=== PATIENT | female | born 1975 | race Caucasian/White ===

== ENCOUNTER → 2024-01-07 09:56 | Outpatient (REF) | payer BC, SELFPAY ==
[2024-01-07 10:21] LABS: % Basophils 1.2 % (0-2); % Immature Granulocytes 0.3 % (0-0.5); % Lymphocytes 25.3 % (20.5-51.1); % Monocytes 6.5 % (1.7-9.3); % Neutrophils 57.7 % (42.2-75.2); Absolute Basophils 0.1 10^3/uL (0-0.2); Absolute Eosinophils 0.5 10^3/uL (0-0.7); Absolute Lymphocytes 1.5 10^3/uL (1.2-3.4); Absolute Monocytes 0.4 10^3/uL (0.1-0.6); Absolute Neutrophils 3.5 10^3/uL (1.4-6.5); Hematocrit 42.3 % (37.0-47.0); Hemoglobin 14.5 g/dL (12.0-16.0); Mean Corp Hgb Conc. 34.3 g/dL (33.0-37.0); Mean Corpuscular Hgb 30.3 pg (27.0-31.0); Mean Corpuscular Volume 88.3 fL (81.0-99.0); Mean Platelet Volume 11.7 fL (7.4-10.4); Nucleated Red Blood Cells % 0 %; Platelet Count 195 10^3/uL (130-400); Red Blood Cell Count 4.79 10^6/uL (4.20-5.40); Red Cell Dist. Width 12.2 % (11.5-14.5)
[2024-01-07 11:10] LABS: Glycohemoglobin (HgbA1c) 12.9 % (4.0-5.6)
[2024-01-07 11:11] LABS: ALT (SGPT) 17 U/L (0-35); AST (SGOT) 18 U/L (14-36); Albumin 3.9 g/dl (3.5-5.0); Alkaline Phosphatase 85 U/L (38-126); Blood Urea Nitrogen 12 mg/dl (7-17); Calcium 9.6 mg/dl (8.4-10.2); Carbon Dioxide 27 mmol/L (22-30); Chloride 98 mmol/L (98-107); Glucose 324 mg/dl (70-99); HDL Cholesterol 90 mg/dl; LDL Cholesterol, Calculated 39 mg/dl; Potassium 4.3 mmol/L (3.5-5.1); Sodium 133 mmol/L (135-145); Total Bilirubin 1.2 mg/dl (0.2-1.3); Total Cholesterol 156 mg/dl (50-199); Total Protein 6.7 g/dl (6.3-8.2); Triglyceride 135 mg/dl (10-149); Very Low Density Lipoprotein 27 mg/dl (0-30); eGFR > 60.00
[2024-01-07 11:42] LABS: TSH Reflex To Free T4 1.81 uIU/ml (0.47-4.68)
== END ==
LOC: REG 09:56
PROVIDERS: ATTENDING PHYSICIAN Student in an Organized Health Care Education/Training Program
DX: Z76.89 Persons encountering health services in other specified circumstances (principal); E11.9 Type 2 diabetes mellitus without complications; I10 Essential (primary) hypertension; E78.2 Mixed hyperlipidemia; E03.9 Hypothyroidism, unspecified
CPT/HCPCS: 36415; 80053; 80061; 83036; 84443; 85025

== ENCOUNTER → 2024-05-09 13:33 | Outpatient (REF) | payer BC, SELFPAY | LOC: CPAP 13:33 | PROVIDERS: ATTENDING PHYSICIAN Obstetrics & Gynecology Gynecology | DX: Z01.419 Encounter for gynecological examination (general) (routine) without abnormal findings (principal) | CPT/HCPCS: 87624 ==

== ENCOUNTER → 2024-06-22 06:42 | Outpatient (REF) | payer BC, SELFPAY | LOC: WDC 06:42 | PROVIDERS: ATTENDING PHYSICIAN Obstetrics & Gynecology Gynecology; FAMILY PHYSICIAN Student in an Organized Health Care Education/Training Program | DX: Z12.31 Encounter for screening mammogram for malignant neoplasm of breast (principal) | CPT/HCPCS: 77063; 77067 ==

== ENCOUNTER → 2025-02-01 10:25 | Outpatient (REF) | payer OTHER, SELFPAY ==
[2025-02-03 12:05] LABS: Quantiferon Mitogen minus NIL 9.99 IU/mL; Quantiferon NIL 0.01 IU/mL; Quantiferon Plus TB2 minus NIL 0.01 IU/mL (<=0.34); Quantiferon TB Gold Plus Negative (Negative)
== END ==
LOC: OHS 10:25
PROVIDERS: ATTENDING PHYSICIAN Nurse Practitioner Family
DX: Z23 Encounter for immunization (principal)
CPT/HCPCS: 36415; 86480; 86787

== ENCOUNTER → 2025-05-25 10:34 | Outpatient (REF) | payer BC, SELFPAY ==
[2025-05-25 11:36] LABS: Hematocrit 46.2 % (37.0-47.0); Hemoglobin 15.3 g/dL (12.0-16.0); Mean Corp Hgb Conc. 33.1 g/dL (33.0-37.0); Mean Corpuscular Volume 86.5 fL (81.0-99.0); Nucleated Red Blood Cells % 0 %; Platelet Count 197 10^3/uL (130-400); Red Cell Dist. Width 12.4 % (11.5-14.5)
[2025-05-25 11:56] LABS: Glycohemoglobin (HgbA1c) 10.5 % (4.0-5.6)
[2025-05-25 12:05] LABS: ALT (SGPT) 24 U/L (0-35); AST (SGOT) 21 U/L (14-36); Albumin 4.8 g/dl (3.5-5.0); Alkaline Phosphatase 86 U/L (38-126); Amylase 65 U/L (30-110); Blood Urea Nitrogen 18 mg/dl (7-17); Calcium 10.2 mg/dl (8.4-10.2); Carbon Dioxide 27 mmol/L (22-30); Chloride 105 mmol/L (98-107); Glucose 204 mg/dl (70-99); Lipase 79 U/L (23-300); Potassium 4.5 mmol/L (3.5-5.1); Sodium 140 mmol/L (135-145); Total Protein 7.3 g/dl (6.3-8.2); eGFR > 60.00
[2025-05-25 12:08] LABS: Microalb - Urine Creatinine 29.100 mg/dl
[2025-05-25 12:13] LABS: Microalbumin, Random Urine < 0.6 mg/dl (0.6-1.7)
== END ==
LOC: REG 10:34
PROVIDERS: ATTENDING PHYSICIAN Physician Assistant Medical
DX: R07.89 Other chest pain (principal); R10.13 Epigastric pain
CPT/HCPCS: 36415; 80053; 82043; 82150; 82570; 83013; 83036; 83690; 85025

== ENCOUNTER → 2025-06-26 06:39 | Outpatient (REF) | payer BC, SELFPAY | LOC: WDC 06:39 | PROVIDERS: ATTENDING PHYSICIAN Obstetrics & Gynecology Gynecology; FAMILY PHYSICIAN Student in an Organized Health Care Education/Training Program | DX: Z12.31 Encounter for screening mammogram for malignant neoplasm of breast (principal) | CPT/HCPCS: 77063; 77067 ==

== ENCOUNTER → 2025-09-02 15:06 | Outpatient (REF) | payer BC, SELFPAY | LOC: CLAB 15:06 | PROVIDERS: ATTENDING PHYSICIAN Obstetrics & Gynecology Gynecology | DX: N76.0 Acute vaginitis (principal) | CPT/HCPCS: 87070; 87102 ==

== ENCOUNTER → 2025-09-18 16:39 | Outpatient (REF) | payer BC, SELFPAY | LOC: RAD 16:39 | PROVIDERS: ATTENDING PHYSICIAN Obstetrics & Gynecology Gynecology; FAMILY PHYSICIAN Physician Assistant Medical | DX: R10.20 Pelvic and perineal pain unspecified side (principal) | CPT/HCPCS: 76830; 76856 ==

== ENCOUNTER → 2025-09-25 07:13 | Outpatient (REF) | payer BC, SELFPAY ==
[2025-09-25 08:33] LABS: Microalb - Urine Creatinine 80.100 mg/dl
[2025-09-25 08:38] LABS: Microalbumin, Random Urine 1.9 mg/dl (0.6-1.7)
[2025-09-25 08:50] LABS: ALT (SGPT) 22 U/L (0-35); AST (SGOT) 18 U/L (14-36); Albumin 4.7 g/dl (3.5-5.0); Alkaline Phosphatase 83 U/L (38-126); Blood Urea Nitrogen 25 mg/dl (7-17); Calcium 10.1 mg/dl (8.4-10.2); Carbon Dioxide 28 mmol/L (22-30); Chloride 103 mmol/L (98-107); Glucose 183 mg/dl (70-99); HDL Cholesterol 78 mg/dl; LDL Cholesterol, Calculated 54 mg/dl; Potassium 4.4 mmol/L (3.5-5.1); Sodium 138 mmol/L (135-145); Total Protein 7.0 g/dl (6.3-8.2); Very Low Density Lipoprotein 36 mg/dl (0-30); eGFR > 60.00
[2025-09-25 09:46] LABS: Glycohemoglobin (HgbA1c) 7.2 % (4.0-5.9)
== END ==
LOC: REG 07:13
PROVIDERS: ATTENDING PHYSICIAN Nurse Practitioner Family; FAMILY PHYSICIAN Physician Assistant Medical
DX: E11.65 Type 2 diabetes mellitus with hyperglycemia (principal)
CPT/HCPCS: 36415; 80053; 80061; 82043; 82570; 83036